=== PATIENT | male | born 1960 | race Caucasian/White ===

== ENCOUNTER 2017-02-21 11:27 | Inpatient (IN) | payer BC ==
[~2017-02-21 11:27] MED LIST: ASPIR 8181 MG PO; ASPIRIN81 M1 PO; B COMPLEX1 CAP PO; COUMADIN2 M1 PO; KEFLEX500 M1 PO; KEFLEX500 MG PO; LISINOPRIL5 MG PO; LOSARTAN POTASS50 M1 PO; LOVENOX80 MG/0.1 SC; PERCOCET 5/3251 TAB PO; TAZTIA XT360 MG PO; VITAMIN B COMP1 EAC1 PO; VITAMIN C1000 M1 PO; VITAMIN C2000 MG PO; VITAMIN D31000 UNI3 PO
[2017-02-21 12:31] LABS: INR 1.2 INR (0.9-1.1); PROTHROMBIN TIME 13.5 SECONDS (9.0-13.6)
[2017-02-22 06:17] LABS: INR 1.3 INR (0.9-1.1); PROTHROMBIN TIME 15.4 SECONDS (9.0-13.6)
[2017-02-22] MEDS ORDERED: PERCOCET 5-3251 EACH PO (09:57)
[2017-02-22] MEDS ORDERED: PHENERGAN12.5 M2 PO (09:57)
== END 2017-02-22 11:55 | DRG 501 ==
LOC: SHSB 11:27 → ORE 12:42 → PACU 14:10 → 5EB 15:15
PROVIDERS: Family Medicine; ADMIT Orthopaedic Surgery Foot and Ankle Surgery
PROC: 0LML0ZZ Reattachment of Right Upper Leg Tendon, Open Approach (ICD-10-PCS; principal; 2017-02-21)
DX: S76.111A Strain of right quadriceps muscle, fascia and tendon, initial encounter (principal); Q79.6 Ehlers-Danlos syndromes; I10 Essential (primary) hypertension; Z95.2 Presence of prosthetic heart valve; Z79.01 Long term (current) use of anticoagulants; W10.9XXA Fall (on) (from) unspecified stairs and steps, initial encounter; Y92.510 Bank as the place of occurrence of the external cause
CPT/HCPCS: G8978-GP-CI; G8979-GP-CI; G8980-GP-CI; J0171; J0690; J1650; J1885; J2270; J2795

== ENCOUNTER 2017-03-05 21:27 | Inpatient (IN) | payer BC ==
[2017-03-05 20:36] LABS: BASO % 0.2 % (0-2); EOS % 0.4 % (0-7); EOSINOPHIL ABSOLUTE COUNT 0.1 tho/cmm (0.0-0.7); HCT-HEMATOCRIT 38.7 % (36.0-53.5); HGB-HEMOGLOBIN 13.3 gm/dl (13.5-17.0); IMMATURE GRANULOCYTES ABSOLUTE 0.04 tho/cmm (0-0.03); IMMATURE GRANULOCYTES PERCENT 0.3 % (0-0.3); LYMPH % 8.4 % (20-45); LYMPH ABSOLUTE COUNT 1.1 tho/cmm (0.8-4.5); MCH (MEAN CORPUSCULAR HGB) 31.1 pg (28.0-32.0); MCHC MEAN CORPUSCULAR HGB CONC 34.4 % (32.0-36.0); MCV (MEAN CELL VOLUME) 90.4 fl (82.0-96.0); MEAN PLATELET VOLUME 8.3 cmc (9.4-12.4); MONO % 11.1 % (0-12); MONOCYTE ABSOLUTE COUNT 1.4 tho/cmm (0.0-1.2); NEUTROPHIL ABSOLUTE COUNT 10.3 tho/cmm (1.6-8.0); NEUTROPHIL-AUTOMATED 10.3 tho/cmm (1.6-8.0); NEUTROPHILS % 79.6 % (40-80); PLATELET COUNT 530 tho/cmm (150-450); RED BLOOD COUNT 4.28 mil/cmm (4.40-5.70); WHITE BLOOD COUNT 12.9 tho/cmm (4.0-10.0)
[2017-03-05 20:38] LABS: INR 2.1 INR (0.9-1.1); PROTHROMBIN TIME 25.2 SECONDS (9.0-13.6)
[2017-03-05 20:56] LABS: ANION GAP 14 mmol/L (0-20); BLOOD UREA NITROGEN 13 mg/dl (6-24); CALCIUM 8.9 mg/dl (8.5-10.5); CARBON DIOXIDE-VENOUS 27 mmol/L (22-32); CHLORIDE 101 mmol/l (96-110); GLUCOSE 109 mg/dL (70-110); POTASSIUM 4.5 mmol/L (3.7-5.1); SODIUM 137 mmol/L (135-145); eGFR VALUE FOR BLACK >90 mL/Min
[~2017-03-05 21:27] MED LIST changes: +PERCOCET 5-3251 EACH PO; +PHENERGAN12.5 M2 PO
[2017-03-06 15:55] LABS: BASO % 0.2 % (0-2); EOS % 1.7 % (0-7); EOSINOPHIL ABSOLUTE COUNT 0.2 tho/cmm (0.0-0.7); HCT-HEMATOCRIT 36.4 % (36.0-53.5); HGB-HEMOGLOBIN 12.2 gm/dl (13.5-17.0); IMMATURE GRANULOCYTES ABSOLUTE 0.05 tho/cmm (0-0.03); IMMATURE GRANULOCYTES PERCENT 0.4 % (0-0.3); LYMPH % 6.9 % (20-45); LYMPH ABSOLUTE COUNT 0.9 tho/cmm (0.8-4.5); MCH (MEAN CORPUSCULAR HGB) 30.8 pg (28.0-32.0); MCHC MEAN CORPUSCULAR HGB CONC 33.5 % (32.0-36.0); MCV (MEAN CELL VOLUME) 91.9 fl (82.0-96.0); MEAN PLATELET VOLUME 8.4 cmc (9.4-12.4); MONO % 11.3 % (0-12); MONOCYTE ABSOLUTE COUNT 1.5 tho/cmm (0.0-1.2); NEUTROPHIL ABSOLUTE COUNT 10.4 tho/cmm (1.6-8.0); NEUTROPHIL-AUTOMATED 10.4 tho/cmm (1.6-8.0); NEUTROPHILS % 79.5 % (40-80); PLATELET COUNT 427 tho/cmm (150-450); RED BLOOD COUNT 3.96 mil/cmm (4.40-5.70); WHITE BLOOD COUNT 13.1 tho/cmm (4.0-10.0)
[2017-03-06 16:00] LABS: INR 2.7 INR (0.9-1.1)
[2017-03-06 16:08] LABS: ANION GAP 8 mmol/L (0-20); BLOOD UREA NITROGEN 14 mg/dl (6-24); C-REACTIVE PROTEIN 17.1 mg/dl (0-0.9); CALCIUM 8.6 mg/dl (8.5-10.5); CARBON DIOXIDE-VENOUS 31 mmol/L (22-32); CHLORIDE 100 mmol/l (96-110); CREATININE 0.92 mg/dl (0.60-1.30); GLUCOSE 108 mg/dL (70-110); POTASSIUM 4.2 mmol/L (3.7-5.1); SODIUM 135 mmol/L (135-145); eGFR VALUE FOR BLACK >90 mL/Min
[2017-03-06 16:14] LABS: ESR-ERYTHROCYTE SED RATE 41 mm/hr (0-20)
[2017-03-07 06:03] LABS: INR 2.3 INR (0.9-1.1); PROTHROMBIN TIME 27.9 SECONDS (9.0-13.6)
[2017-03-08 05:27] LABS: BASO % 0.5 % (0-2); BASO ABSOLUTE COUNT 0.1 tho/cmm (0.0-0.2); EOS % 3.7 % (0-7); EOSINOPHIL ABSOLUTE COUNT 0.4 tho/cmm (0.0-0.7); HCT-HEMATOCRIT 32.5 % (36.0-53.5); HGB-HEMOGLOBIN 10.9 gm/dl (13.5-17.0); IMMATURE GRANULOCYTES ABSOLUTE 0.05 tho/cmm (0-0.03); IMMATURE GRANULOCYTES PERCENT 0.5 % (0-0.3); LYMPH % 15.6 % (20-45); LYMPH ABSOLUTE COUNT 1.5 tho/cmm (0.8-4.5); MCH (MEAN CORPUSCULAR HGB) 30.6 pg (28.0-32.0); MCHC MEAN CORPUSCULAR HGB CONC 33.5 % (32.0-36.0); MCV (MEAN CELL VOLUME) 91.3 fl (82.0-96.0); MEAN PLATELET VOLUME 8.2 cmc (9.4-12.4); MONO % 10.1 % (0-12); NEUTROPHIL ABSOLUTE COUNT 6.7 tho/cmm (1.6-8.0); NEUTROPHIL-AUTOMATED 6.7 tho/cmm (1.6-8.0); NEUTROPHILS % 69.6 % (40-80); PLATELET COUNT 425 tho/cmm (150-450); RED BLOOD COUNT 3.56 mil/cmm (4.40-5.70); WHITE BLOOD COUNT 9.6 tho/cmm (4.0-10.0)
[2017-03-08 06:06] LABS: INR 1.6 INR (0.9-1.1); PROTHROMBIN TIME 18.4 SECONDS (9.0-13.6)
[2017-03-09 05:30] LABS: INR 1.9 INR (0.9-1.1); PROTHROMBIN TIME 22.8 SECONDS (9.0-13.6)
[2017-03-09] MEDS ORDERED: COUMADIN4 M1 PO (09:06)
[2017-03-09] MEDS ORDERED: KEFLEX500 M4 PO (09:08)
[2017-03-09] MEDS ORDERED: PERCOCET 7.5-31 EAC1 PO (09:09)
[2017-03-09] MEDS ORDERED: SENOKOT-S TABL1 EACH PO (09:39)
== END 2017-03-09 10:24 | DRG 920 ==
LOC: EDMED 21:27 → EMR2 21:29 → 5EB 23:20
PROVIDERS: Internal Medicine; Physician Assistant; ADMIT Orthopaedic Surgery Sports Medicine
DX: L76.32 Postprocedural hematoma of skin and subcutaneous tissue following other procedure (principal); Q79.6 Ehlers-Danlos syndromes; I71.2 Thoracic aortic aneurysm, without rupture; L03.115 Cellulitis of right lower limb; I10 Essential (primary) hypertension; Z86.73 Personal history of transient ischemic attack (TIA), and cerebral infarction without residual deficits; Z79.82 Long term (current) use of aspirin; D47.3 Essential (hemorrhagic) thrombocythemia; Z95.2 Presence of prosthetic heart valve; Z79.01 Long term (current) use of anticoagulants; Z85.820 Personal history of malignant melanoma of skin; K59.00 Constipation, unspecified; Y83.8 Other surgical procedures as the cause of abnormal reaction of the patient, or of later complication, without mention of misadventure at the time of the procedure
CPT/HCPCS: G0009; G8978-GP-CJ; G8979-GP-CJ; G8980-GP-CJ; J0690; J1170; J2270; J2405; J7030